=== PATIENT | female | born 1965 | race Caucasian/White ===

== ENCOUNTER 2016-10-27 12:38 | Emergency (ER) | payer OTHER, MEDICAID ==
[2016-10-27 12:47] VITALS: BP 135/78; BMI 41.7
[2016-10-27] MEDS ORDERED: ADACEL TDaP IM ONE ×2 (13:24→13:28)
--- NOTE | 2016-10-27 13:25 | DR.LACERAT ---
HPI - Time Seen Time seen: 13:30 - Primary Care Physician Primary Care Physician: JAZMIN WELCH - Complaints Chief Complaint Doctors Comments: History as stated Chief Complaint:: PT STATES " I WAS WALKING DOWN MY STEPS THIS AM AND SHE FELL ON MY BUTT AND I HAVE A SMALL LAC TO RIGHT HAND AND MY RIGHT SHOULDER HURTS' Self Treatment fo Chief Complaint: DRESSING TO RIGHT HAND - Source History Provided: Patient - Mode of Arrival Mode of Arrival: Ambulatory - Timing Onset of Chief Complaint: 10/27/16 PMH - PMH Past Medical History: Yes Past Medical History: CHF, Hypertension, Renal Disease Past Surgical History: Yes Surgical History: Tonsillectomy Past Surgical History Comment: 3 SECTIONS .. - Family History History of Family Medical Conditions: No - Social History Does patient currently use any type of tobacco product: No Have you used tobacco products in the last 12 months: No Type of Tobacco Use: None Does any household member use tobacco: No Alcohol Use: None Do you use any recreational Drugs:: No Lives With: Family Lives Where: Home - infectious screening In the last 2 months have you had wt loss of >10#?: YES Have you had fever, night sweats or hemotysis?: No Have you traveled outside the country in the last 6 months?: No Isolation: Standard ROS - Review of Systems Eyes: No Symptoms Reported, Eye Pain Respiratoy: No Symptoms Reported Cardiovascular: No Symptoms Reported Gastrointestinal/Abdominal: No Symptoms Reported Genitourinary: No Symptoms Reported Neurological: No Symptoms Reported Musculoskeletal: Shoulder (right pain), Hand (laceration between digits 1 and 3) Integumentary: No Symptoms Reported Hematologic/Lymphatic: No Symptoms Reported Endocrine: No Symptoms Reported Psychiatric: No Symptoms Reported All Other Systems: Reviewed and Negative PE - Vital Signs Vitals: Temperature 97.5 F Pulse Rate 68 Respiratory Rate 18 Blood Pressure 135/78 O2 Sat by Pulse Oximetry 95 - General Limitations: No Limitations General Appearance: Alert - Head Head Exam: Normal Inspection, Atraumatic - Eyes Eye exam: Normal Appearance, PERRL, EOMI - ENT ENT Exam: Normal Exam - Neck Neck Exam: Normal Inspection - Chest Chest Inspection: Normal Inspection, Symmetric Chest Wall Rise - Respiratory Respiratory Exam: Normal Lung Sounds Bilat Respiratory Exam: Bilateral Clear to Auscultation - Cardiovascular Cardiovascular Exam: Regular Rate, Normal Rhythm - Abdominal Exam Abdominal Exam: Normal Inspection Abdominal Tenderness: negative: RUQ, RLQ, LUQ, LLQ, Epigastrium, Suprapubic, Diffuse, Mild, Moderate, Severe, Other - Extremities Extremities Exam: Normal Inspection, Other (right hand laceration between digist 1 and 3) - Back Back Exam: Normal Inspection - Neurologic Neurological Exam: Alert, Oriented X3, CN II-XII Intact - Psychiatric Psychiatric Exam: Normal Affect, Normal Mood - Skin Skin Exam: Warm, Dry, Intact Course - Reevaluation 1st: Improved ROR - XRAY XRAY Interpreted by: Radiologist (Right shoulder: negative for fracture) Procedures - Laceration/Wound Repair Right Hand Wound Length (cm): 3 Wound's Depth, Shape: Superficial, Irregular Wound Explored: clean Betadine Prep?: Yes Anesthesia: 1% Lidocaine w/ Epi Volume Anesthetic (ccs): 4 Wound Debrided: minimal Suture Size/Type: 4:0, Ethilion (9) - Diagnosis Discharge Problem: Laceration of right hand Qualifiers: Encounter type: initial encounter Foreign body presence: unspecified Qualified Code(s): S61.411A - Laceration without foreign body of right hand, initial encounter Shoulder pain, right Qualifiers: Chronicity: acute Qualified Code(s): M25.511 - Pain in right shoulder Contusion of shoulder, right Qualifiers: Encounter type: initial encounter Qualified Code(s): S40.011A - Contusion of right shoulder, initial encounter - Discharge Plan Condition: Stable - Follow ups/Referrals Follow ups/Referrals: [facility],None [Primary Care Provider] - 3 days - Instructions
[2016-10-27] MEDS ORDERED: BACITRACIN ZINC ONE (14:06)
--- NOTE | 2016-10-27 14:31 | RAD ---
Examination: X-rays of the right shoulder. Clinical history: Fell, injured right shoulder. Technique: Three views of the right shoulder were obtained. Comparison: None available. Findings: No acute fracture, dislocation, or destructive bony lesion is noted. No soft tissue abnormality is noted. Impression: 1. No acute fracture or dislocation. Reported By:
== END 2016-10-27 14:48 | disposition home or self-care (01) ==
LOC: ER 13:03
PROC: 0HQFXZZ Repair Right Hand Skin, External Approach (ICD-10-PCS; principal; 2016-10-27)
DX: S61.411A Laceration without foreign body of right hand, initial encounter (principal); W10.8XXA Fall (on) (from) other stairs and steps, initial encounter; Y92.9 Unspecified place or not applicable; S40.011A Contusion of right shoulder, initial encounter
CPT/HCPCS: 12002; 73030; 90471; 99283; 99284